=== PATIENT | male | born 1945 | race African-American/Black ===

== ENCOUNTER 2017-08-29 05:13 | Inpatient (IN) ==
[2017-09-03 11:57] VITALS: BP 100/48
== END 2017-09-03 15:55 | DRG 470 ==
LOC: N.OR 05:13 → N.SDSINP 05:14 → N.3E 09:31
PROVIDERS: ADMIT Orthopaedic Surgery; ATTEND Orthopaedic Surgery

== ENCOUNTER 2018-01-03 05:28 | Inpatient (IN) ==
[2018-01-02 13:03] LABS: Basophils % 0.6 % (0.0-0.8); Eosinophils # 0.1 10*3/uL (0.0-0.87); Hematocrit 41.9 VOL% (42.0-52.0); Hemoglobin 13.2 GM/DL (14.0-18.0); Immature Granulocytes % 0.4 %; Immature Granulocytes Absolute 0.03 #; Lymphocytes # 1.2 10*3/uL (1.4-4.0); Lymphocytes % 17.7 % (21.2-54.2); Mean Corpuscular HGB Conc 31.5 GM/DL (32-36); Mean Corpuscular Hemoglobin 27 PG (27-34); Mean Corpuscular Volume 84.3 FL (87-102); Mean Platelet Volume 11.1 FL (9.6-12.0); Monocytes # 0.5 10*3/uL (0.11-0.8); Monocytes % 7.8 % (1.7-12.7); Neutrophils % 72.5 % (38.7-73.9); Platelet Count 152 T/CUMM (130-400); Red Blood Count 4.97 MC/CUMM (3.8-5.5); Red Cell Distribution Width 14.8 % (9.3-17.3); White Blood Count 6.9 T/CUMM (4-12)
[2018-01-02 13:14] LABS: PT Patient Result 10.7 SECS; Partial Thromboplastin Time 28.6 SECS (0-40)
[2018-01-02 13:15] LABS: Apearance,Urine CLEAR (Clear); Bilirubin,Urine Negative (Negative); Blood, Urine Negative (Negative); Glucose,Urine (UA) Negative (Negative); Ketones,Urine Negative (Negative); Mucus,Urine Occasional /LPF (Occasional); Nitrite,Urine Negative (Negative); Protein,Urine Negative; RBC,Urine <1 /HPF (0-4); Urine Color Straw (Yellow); Urine Specific Gravity 1.011 (1.001-1.035); Urine Urobilinogen < 2.0 EU/DL (0.2-1.0); WBC,Urine <1 /HPF (0-6)
[2018-01-02 13:33] LABS: Alanine Aminotransferase 24 U/L (16-61); Albumin 4.2 G/DL (3.4-5.0); Alkaline Phosphatase 113 U/L (45-117); Aspartate Amino Transferase 31 U/L (0-37); Bilirubin,Total < 0.39 MG/DL (0.2-1.0); Blood Urea Nitrogen 13 MG/DL (7-18); Calcium 8.9 MG/DL (8.5-10.1); Glucose 88 MG/DL (74-106); Osmolality,Calculated 273.7 MOS/KG (273-304); Potassium 4.2 MMOL/L (3.5-5.1); Sodium 138 MMOL/L (136-145)
[2018-01-03] MEDS ORDERED: VANCOMYCIN INJ 1,000 MG in SODIUM CHLORIDE 0.9% 250 ML IV ONE (06:00)
[2018-01-03] MEDS ORDERED: ceFAZolin 1,000 MG in SYRINGE 1 EACH IV ONE (06:00)
[2018-01-03] MEDS ORDERED: ceFAZolin 1,000 MG VIAL ONE (06:08)
[2018-01-03] MEDS ORDERED: VANCOMYCIN 1,000 MG VIAL ONE (06:08)
[2018-01-03] MEDS ORDERED: BUPIVACAINE SPINAL 0.75% 2 ML AMP SPINAL ONE (07:12)
[2018-01-03] MEDS ORDERED: TRANEXAMIC ACID 1,000 MG/10 ML VIAL ONE (07:17)
[2018-01-03] MEDS ORDERED: BUPIVACAINE 0.5% 50 ML VIAL ONE (07:18)
[2018-01-03] MEDS ORDERED: LACTATED RINGERS 1,000 ML IV SCH (07:30)
[2018-01-03] MEDS ORDERED: ONDANSETRON 4 MG/2 ML VIAL IV PRN (09:54)
[2018-01-03] MEDS ORDERED: oxyCODONE IR 5 MG TABLET PO PRN ×2 (09:54)
[2018-01-03] MEDS ORDERED: MORPHINE 4 MG/1 ML VIAL IV PRN ×2 (09:54)
[2018-01-03] MEDS ORDERED: diphenhydrAMINE CAP 25 MG CAPSULE PO PRN (09:54)
[2018-01-03] MEDS ORDERED: BACITRACIN OINT 0.9 GM PACK TOP ONE (10:56)
[2018-01-03 11:20] LABS: Apearance,Urine CLEAR (Clear); Bilirubin,Urine Negative (Negative); Blood, Urine Negative (Negative); Glucose,Urine (UA) Negative (Negative); Ketones,Urine Negative (Negative); Nitrite,Urine Negative (Negative); Protein,Urine Negative; Urine Color Colorless (Yellow); Urine Specific Gravity 1.005 (1.001-1.035); Urine Urobilinogen < 2.0 EU/DL (0.2-1.0)
[2018-01-03] MEDS ORDERED: ONDANSETRON 4 MG/2 ML VIAL ONE (11:22)
[2018-01-03] MEDS ORDERED: fentaNYL 100 MCG/2 ML VIAL ONE (11:22)
[2018-01-03] MEDS ORDERED: PROPOFOL 200 MG/20 ML VIAL IV ONE (11:22)
[2018-01-03] MEDS ORDERED: MIDAZOLAM 2 MG/2 ML VIAL ONE (11:22)
[2018-01-03] MEDS ORDERED: LACTATED RINGERS 1,000 ML IV ONE (11:23)
[2018-01-03] MEDS ORDERED: PHENYLEPHRINE 1 MG/10 ML SYRINGE IV ONE (11:23)
[2018-01-03] MEDS ORDERED: SODIUM CHLORIDE 0.9% 200 ML IV ONE (11:23)
[2018-01-03] MEDS: KETOROLAC 30 MG/1 ML VIAL IV SCH ×3 (11:47→22:53)
[2018-01-03] MEDS ORDERED: KETOROLAC 30 MG/1 ML VIAL ONE (11:48)
[2018-01-03] MEDS: LACTATED RINGERS 1,000 ML IV SCH ×2 (12:10→19:00)
[2018-01-03] MEDS: ACETAMINOPHEN 500 MG TABLET PO SCH ×2 (14:39→20:37)
[2018-01-03] MEDS: ceFAZolin 1,000 MG in SYRINGE 1 EACH IV SCH ×2 (14:39→21:03)
[2018-01-03] MEDS: DOCUSATE SODIUM 100 MG CAPSULE PO SCH (20:38)
[2018-01-04] MEDS: ACETAMINOPHEN 500 MG TABLET PO SCH ×2 (01:05→07:50)
[2018-01-04] MEDS: LACTATED RINGERS 1,000 ML IV SCH (02:44)
[2018-01-04] MEDS: FONDAPARINUX 2.5 MG/0.5 ML SYRINGE SUBCUT SCH (03:28)
[2018-01-04] MEDS: KETOROLAC 30 MG/1 ML VIAL IV SCH (03:29)
[2018-01-04 05:20] LABS: Basophils % 0.4 % (0.0-0.8); Eosinophils # 0.1 10*3/uL (0.0-0.87); Eosinophils % 0.7 % (0.00-10.9); Hematocrit 35.4 VOL% (42.0-52.0); Hemoglobin 11.5 GM/DL (14.0-18.0); Immature Granulocytes % 0.3 %; Immature Granulocytes Absolute 0.02 #; Lymphocytes # 0.9 10*3/uL (1.4-4.0); Mean Corpuscular HGB Conc 32.5 GM/DL (32-36); Mean Corpuscular Hemoglobin 27 PG (27-34); Mean Corpuscular Volume 83.5 FL (87-102); Mean Platelet Volume 10.9 FL (9.6-12.0); Monocytes # 0.7 10*3/uL (0.11-0.8); Monocytes % 9.8 % (1.7-12.7); Neutrophils # 5.5 10*3/uL (1.4-7.4); Neutrophils % 75.8 % (38.7-73.9); Platelet Count 120 T/CUMM (130-400); Red Blood Count 4.24 MC/CUMM (3.8-5.5); Red Cell Distribution Width 14.6 % (9.3-17.3); White Blood Count 7.3 T/CUMM (4-12)
[2018-01-04 05:55] LABS: Calcium 8.2 MG/DL (8.5-10.1); Osmolality,Calculated 275.5 MOS/KG (273-304); Potassium 3.5 MMOL/L (3.5-5.1)
[2018-01-04] MEDS: TAMSULOSIN 0.4 MG CAPSULE PO SCH (11:32)
[2018-01-04] MEDS: amLODIPine 10 MG TABLET PO SCH (11:32)
[2018-01-04] MEDS: DOCUSATE SODIUM 100 MG CAPSULE PO SCH ×2 (11:32→20:17)
[2018-01-04] MEDS: CELECOXIB 200 MG CAPSULE PO SCH (15:10)
[2018-01-05] MEDS: FONDAPARINUX 2.5 MG/0.5 ML SYRINGE SUBCUT SCH (03:14)
[2018-01-05 05:52] LABS: Basophils % 0.4 % (0.0-0.8); Eosinophils # 0.1 10*3/uL (0.0-0.87); Eosinophils % 0.7 % (0.00-10.9); Hematocrit 33.9 VOL% (42.0-52.0); Immature Granulocytes % 1.7 %; Immature Granulocytes Absolute 0.17 #; Lymphocytes # 1.1 10*3/uL (1.4-4.0); Lymphocytes % 10.8 % (21.2-54.2); Mean Corpuscular HGB Conc 32.4 GM/DL (32-36); Mean Corpuscular Hemoglobin 27 PG (27-34); Mean Corpuscular Volume 84.1 FL (87-102); Mean Platelet Volume 12.6 FL (9.6-12.0); Monocytes % 9.9 % (1.7-12.7); Neutrophils # 7.8 10*3/uL (1.4-7.4); Neutrophils % 76.5 % (38.7-73.9); Platelet Count 121 T/CUMM (130-400); Red Blood Count 4.03 MC/CUMM (3.8-5.5); Red Cell Distribution Width 14.9 % (9.3-17.3); White Blood Count 10.2 T/CUMM (4-12)
[2018-01-05] MEDS: DOCUSATE SODIUM 100 MG CAPSULE PO SCH (10:58)
[2018-01-05] MEDS: TAMSULOSIN 0.4 MG CAPSULE PO SCH (10:58)
[2018-01-05] MEDS: amLODIPine 10 MG TABLET PO SCH (10:58)
[2018-01-05] MEDS: CELECOXIB 200 MG CAPSULE PO SCH (10:58)
[2018-01-06] MEDS: DOCUSATE SODIUM 100 MG CAPSULE PO SCH ×3 (00:33→20:44)
[2018-01-06] MEDS: FONDAPARINUX 2.5 MG/0.5 ML SYRINGE SUBCUT SCH (04:37)
[2018-01-06] MEDS: TAMSULOSIN 0.4 MG CAPSULE PO SCH (09:03)
[2018-01-06] MEDS: amLODIPine 10 MG TABLET PO SCH (09:03)
[2018-01-06] MEDS: CELECOXIB 200 MG CAPSULE PO SCH (09:04)
[2018-01-06] MEDS: MAGNESIUM HYDROXIDE SUSP 30 ML UDCUP PO PRN ×2 (09:04→17:41)
[2018-01-07] MEDS: FONDAPARINUX 2.5 MG/0.5 ML SYRINGE SUBCUT SCH (03:52)
[2018-01-07] MEDS: DOCUSATE SODIUM 100 MG CAPSULE PO SCH (08:33)
[2018-01-07] MEDS: TAMSULOSIN 0.4 MG CAPSULE PO SCH (08:33)
[2018-01-07] MEDS: CELECOXIB 200 MG CAPSULE PO SCH (08:33)
[2018-01-07] MEDS: amLODIPine 10 MG TABLET PO SCH (08:33)
[2018-01-07 11:55] VITALS: BP 106/73
== END 2018-01-07 14:52 | disposition swing bed (61) | DRG 470 ==
LOC: N.SDSINP 05:28 → N.3E 09:23
PROVIDERS: ADMIT Orthopaedic Surgery; ATTEND Orthopaedic Surgery

== ENCOUNTER 2021-03-23 12:54 | Observation (INO) ==
[2021-03-23 16:47] LABS: Basophils % 0.1 % (0.0-0.8); Eosinophils % 0.1 % (0.00-10.9); Hematocrit 46.4 VOL% (42.0-52.0); Hemoglobin 14.7 GM/DL (14.0-18.0); Immature Granulocytes % 0.5 %; Immature Granulocytes Absolute 0.04 #; Lymphocytes # 1.1 10*3/uL (1.4-4.0); Lymphocytes % 14.5 % (21.2-54.2); Mean Corpuscular HGB Conc 31.7 GM/DL (32-36); Mean Corpuscular Volume 87.7 FL (87-102); Mean Platelet Volume 11.1 FL (9.6-12.0); Monocytes % 10.6 % (1.7-12.7); Neutrophils % 74.2 % (38.7-73.9); Platelet Count 164 T/CUMM (130-400); Red Blood Count 5.29 MC/CUMM (3.8-5.5); Red Cell Distribution Width 13.5 % (9.3-17.3); White Blood Count 7.8 T/CUMM (4-12)
[2021-03-23] MEDS ORDERED: SODIUM CHLORIDE 0.9% 1,000 ML IV STA (16:57)
[2021-03-23 17:10] LABS: Bilirubin,Urine Negative (Negative); Blood, Urine Negative (Negative); Glucose,Urine (UA) Negative (Negative); Hyaline Casts,Urine 4 /LPF (0-3); Ketones,Urine Negative (Negative); Mucus,Urine Occasional /LPF (Occasional); Nitrite,Urine Negative (Negative); Protein,Urine >=500 MG/DL; RBC,Urine 3 /HPF (0-4); Urine Appearance CLEAR (Clear); Urine Color Yellow (Yellow); Urine Specific Gravity 1.023 (1.001-1.035); Urine Urobilinogen < 2.0 EU/DL (<2.0)
[2021-03-23 17:12] LABS: Alanine Aminotransferase 38 U/L (16-61); Albumin 3.1 G/DL (3.4-5.0); Alkaline Phosphatase 117 U/L (45-117); Aspartate Amino Transferase 46 U/L (0-37); Bilirubin,Total < 0.39 MG/DL (0.20-1.00); Blood Urea Nitrogen 16 MG/DL (7-18); Calcium 8.8 MG/DL (8.5-10.1); Carbon Dioxide 31 MMOL/L (21-32); Estimated Glom Filtration Rate 89 ML/MIN; Glucose 97 MG/DL (74-106); Osmolality,Calculated 268.2 MOS/KG (273-304); Sodium 134 MMOL/L (136-145); Total Protein 8.3 G/DL (6.4-8.2)
[2021-03-23] MEDS ORDERED: DOCUSATE SODIUM 100 MG CAPSULE PO PRN (17:32)
[2021-03-23] MEDS ORDERED: GLUCAGON 1 MG VIAL IM PRN (17:32)
[2021-03-23] MEDS ORDERED: ACETAMINOPHEN 325 MG TABLET PO PRN (17:32)
[2021-03-23] MEDS ORDERED: ONDANSETRON 4 MG/2 ML VIAL IV PRN (17:32)
[2021-03-23] MEDS ORDERED: DEXTROSE 10% 250 ML BAG IV PRN (17:43)
[2021-03-23] MEDS ORDERED: guaiFENesin 200 MG/10 ML UDCUP PO PRN (17:53)
[2021-03-23] MEDS ORDERED: hydrALAZINE 20 MG/1 ML VIAL IV PRN (17:56)
[2021-03-23] MEDS ORDERED: PIPERACILLIN/TAZOBACTAM 3,375 MG in SODIUM CHLORIDE 0.9% 100 ML IV SCH (18:00)
[2021-03-23] MEDS ORDERED: ENOXAPARIN 40 MG/0.4 ML SYRINGE SUBCUT SCH (18:00)
[2021-03-23] MEDS ORDERED: MELATONIN 3 MG TABLET PO PRN (19:29)
[2021-03-23 19:50] LABS: Ferritin 743.1 ng/mL (26-388)
[2021-03-23] MEDS: ENOXAPARIN 40 MG/0.4 ML SYRINGE SUBCUT SCH (22:43)
[2021-03-23] MEDS: ASCORBIC ACID 500 MG TABLET PO SCH (22:43)
[2021-03-24] MEDS: DEXTROSE 5% NACL 0.45% 1,000 ML IV SCH ×2 (01:54→11:33)
[2021-03-24] MEDS ORDERED: INFLUENZA VIRUS VACCINE 0.5 ML SYRINGE IM ONE (02:52)
[2021-03-24 04:50] LABS: Basophils % 0.3 % (0.0-0.8); Eosinophils % 0.2 % (0.00-10.9); Hematocrit 42.8 VOL% (42.0-52.0); Hemoglobin 13.4 GM/DL (14.0-18.0); Immature Granulocytes % 0.9 %; Immature Granulocytes Absolute 0.05 #; Lymphocytes # 1.1 10*3/uL (1.4-4.0); Lymphocytes % 19.4 % (21.2-54.2); Mean Corpuscular HGB Conc 31.3 GM/DL (32-36); Mean Corpuscular Volume 87.5 FL (87-102); Mean Platelet Volume 11.3 FL (9.6-12.0); Monocytes % 10.4 % (1.7-12.7); Neutrophils % 68.8 % (38.7-73.9); Platelet Count 162 T/CUMM (130-400); Red Blood Count 4.89 MC/CUMM (3.8-5.5); Red Cell Distribution Width 13.6 % (9.3-17.3); White Blood Count 5.8 T/CUMM (4-12)
[2021-03-24 05:16] LABS: Platelet Estimate Adequate
[2021-03-24 05:24] LABS: Calcium 8.6 MG/DL (8.5-10.1); Osmolality,Calculated 268.4 MOS/KG (273-304); Potassium 4.4 MMOL/L (3.5-5.1); Thyroid Stimulating Hormone 2.36 uIU/ml (0.358-3.74)
[2021-03-24] MEDS ORDERED: AZITHROMYCIN 250 MG TABLET PO ONE (09:00)
[2021-03-24] MEDS: ENOXAPARIN 40 MG/0.4 ML SYRINGE SUBCUT SCH ×2 (09:05→20:39)
[2021-03-24] MEDS: CHOLECALCIFEROL 1,000 UNIT TABLET PO SCH (09:06)
[2021-03-24] MEDS: PANTOPRAZOLE 40 MG TABLET PO SCH (09:06)
[2021-03-24] MEDS: ZINC GLUCONATE 50 MG TABLET PO SCH (09:06)
[2021-03-24] MEDS: ASCORBIC ACID 500 MG TABLET PO SCH ×2 (09:06→20:39)
[2021-03-24] MEDS: CETIRIZINE 10 MG TABLET PO SCH (11:32)
[2021-03-25] MEDS: DEXTROSE 5% NACL 0.45% 1,000 ML IV SCH ×3 (04:35→21:05)
[2021-03-25 05:11] LABS: Basophils % 0.3 % (0.0-0.8); Eosinophils # 0.1 10*3/uL (0.0-0.87); Eosinophils % 0.8 % (0.00-10.9); Hematocrit 43.3 VOL% (42.0-52.0); Hemoglobin 13.5 GM/DL (14.0-18.0); Immature Granulocytes % 0.3 %; Immature Granulocytes Absolute 0.02 #; Lymphocytes # 1.2 10*3/uL (1.4-4.0); Lymphocytes % 17.7 % (21.2-54.2); Mean Corpuscular HGB Conc 31.2 GM/DL (32-36); Mean Platelet Volume 10.9 FL (9.6-12.0); Monocytes % 11.3 % (1.7-12.7); Neutrophils % 69.6 % (38.7-73.9); Platelet Count 166 T/CUMM (130-400); Red Blood Count 4.92 MC/CUMM (3.8-5.5); Red Cell Distribution Width 13.6 % (9.3-17.3); White Blood Count 6.7 T/CUMM (4-12)
[2021-03-25 05:33] LABS: Alanine Aminotransferase 54 U/L (16-61); Albumin 2.6 G/DL (3.4-5.0); Alkaline Phosphatase 101 U/L (45-117); Aspartate Amino Transferase 56 U/L (0-37); Bilirubin,Total < 0.39 MG/DL (0.20-1.00); Blood Urea Nitrogen 12 MG/DL (7-18); Calcium 8.1 MG/DL (8.5-10.1); Carbon Dioxide 30 MMOL/L (21-32); Estimated Glom Filtration Rate 99 ML/MIN; Ferritin 542.2 ng/mL (26-388); Glucose 105 MG/DL (74-106); Osmolality,Calculated 272.8 MOS/KG (273-304); Potassium 4.2 MMOL/L (3.5-5.1); Sodium 137 MMOL/L (136-145); Total Protein 6.9 G/DL (6.4-8.2)
[2021-03-25] MEDS: PANTOPRAZOLE 40 MG TABLET PO SCH (09:27)
[2021-03-25] MEDS: CETIRIZINE 10 MG TABLET PO SCH (09:27)
[2021-03-25] MEDS: AZITHROMYCIN 250 MG TABLET PO SCH (09:27)
[2021-03-25] MEDS: ASCORBIC ACID 500 MG TABLET PO SCH ×2 (09:27→21:01)
[2021-03-25] MEDS: CHOLECALCIFEROL 1,000 UNIT TABLET PO SCH (09:27)
[2021-03-25] MEDS: ENOXAPARIN 40 MG/0.4 ML SYRINGE SUBCUT SCH ×2 (09:28→21:01)
[2021-03-25] MEDS: ZINC GLUCONATE 50 MG TABLET PO SCH (09:28)
[2021-03-26 06:31] LABS: Basophils % 0.3 % (0.0-0.8); Eosinophils % 0.5 % (0.00-10.9); Hematocrit 42.4 VOL% (42.0-52.0); Hemoglobin 13.3 GM/DL (14.0-18.0); Immature Granulocytes % 0.5 %; Immature Granulocytes Absolute 0.04 #; Lymphocytes # 1.2 10*3/uL (1.4-4.0); Lymphocytes % 15.6 % (21.2-54.2); Mean Corpuscular HGB Conc 31.4 GM/DL (32-36); Mean Corpuscular Volume 87.1 FL (87-102); Mean Platelet Volume 10.9 FL (9.6-12.0); Monocytes % 9.2 % (1.7-12.7); Neutrophils % 73.9 % (38.7-73.9); Platelet Count 206 T/CUMM (130-400); Red Blood Count 4.87 MC/CUMM (3.8-5.5); Red Cell Distribution Width 13.7 % (9.3-17.3); White Blood Count 7.8 T/CUMM (4-12)
[2021-03-26 06:57] LABS: Calcium 8.3 MG/DL (8.5-10.1); Osmolality,Calculated 268.1 MOS/KG (273-304); Potassium 3.7 MMOL/L (3.5-5.1)
[2021-03-26] MEDS ORDERED: MAGNESIUM SULF RIDER 2 GM/50 ML PREMIX IV ONE (07:19)
[2021-03-26] MEDS ORDERED: amLODIPine 5 MG TABLET PO SCH (09:00)
[2021-03-26] MEDS: ASCORBIC ACID 500 MG TABLET PO SCH (10:44)
[2021-03-26] MEDS: CHOLECALCIFEROL 1,000 UNIT TABLET PO SCH (10:44)
[2021-03-26] MEDS: ENOXAPARIN 40 MG/0.4 ML SYRINGE SUBCUT SCH (10:44)
[2021-03-26] MEDS: PANTOPRAZOLE 40 MG TABLET PO SCH (10:44)
[2021-03-26] MEDS: CETIRIZINE 10 MG TABLET PO SCH (10:45)
[2021-03-26] MEDS: AZITHROMYCIN 250 MG TABLET PO SCH (10:45)
[2021-03-26] MEDS: ZINC GLUCONATE 50 MG TABLET PO SCH (10:45)
[2021-03-26 12:37] VITALS: BP 118/67
== END 2021-03-26 13:29 | disposition home or self-care (01) ==
LOC: N.ED 12:54 → N.EDINP 12:54 → SUATTDRO 17:28 → N.EDINP 03-24 02:10 → N.3E 03-24 02:39
PROVIDERS: ADMIT Hospitalist; ATTEND Hospitalist